=== PATIENT | female | born 1975 | race Caucasian/White ===

== ENCOUNTER 2021-12-09 22:17 | Inpatient (IN) ==
[2021-12-10] MEDS ORDERED: Naloxone 0.4 MG/ML INJ IVP PRN (01:19)
[2021-12-10] MEDS ORDERED: Ondansetron 4 MG/2 ML VIAL IVP PRN ×2 (01:19→09:43)
[2021-12-10] MEDS ORDERED: *HR* HYDROmorphone 2 MG/ML SYRINGE IVP PRN (02:02)
[2021-12-10] MEDS ORDERED: Ipratropium/Albuterol Neb 3 ML IH PRN (02:13)
[2021-12-10] MEDS: 0.9 % Sodium Chloride 1,000 ML IVC SCH ×3 (02:29→17:59)
[2021-12-10 03:14] LABS: Basophils % 0.3 %; Eosinophils # 0.1 K/mcL (0.0-0.6); Eosinophils % 1.1 %; Hematocrit 43.3 % (35.3-44.9); Hemoglobin 14.3 g/dL (11.5-15.4); Immature Granulocytes % 0.3 % (0-4); Lymphocytes # 0.8 K/mcL (0.6-4.6); Lymphocytes % 9.1 %; Mean Corpuscular Hemoglobin 28.5 pg (28.0-33.3); Mean Corpuscular Volume 86.4 fL (83.0-100.0); Mean Platelet Volume 9.3 fL (9.4-12.4); Monocytes # 0.5 K/mcL (0.0-1.3); Neutrophils # 7.2 K/mcL (1.6-8.9); Platelet Count 264 K/mcL (140-400); Red Blood Count 5.01 M/mcL (3.82-4.97); Red Cell Distribution Width 13.3 % (11.5-14.5); Segmented Neutrophils % 83.2 %; White Blood Count 8.7 K/mcL (4.3-11.1)
[2021-12-10 03:19] LABS: Estimated Average Glucose 126 mg/dl
[2021-12-10 03:23] LABS: Prothrombin Time 11.6 Seconds (9.4-12.1)
[2021-12-10 03:30] LABS: Amylase 18 Units/L (29-103); Lipase 10 Units/L (11-82)
[2021-12-10 03:50] LABS: Alanine Aminotransferase 631 Units/L (7-52); Albumin 3.9 g/dL (3.5-5.7); Albumin/Globulin Ratio 1.5 (1.1-2.2); Alkaline Phosphatase 153 Units/L (34-104); Aspartate Amino Transferase 375 Units/L (13-39); BUN/Creatinine Ratio 12 (6-26); Bilirubin,Direct 2.7 mg/dL (0.0-0.2); Bilirubin,Indirect 1.1 mg/dL (0.0-1.0); Bilirubin,Total 3.8 mg/dL (0.3-1.0); Blood Urea Nitrogen 8 mg/dL (6-20); Calcium 8.9 mg/dL (8.6-10.3); Carbon Dioxide 27 mEq/L (23-29); Chloride 102 mEq/L (98-107); Chol/HDL Ratio 3.5 (0-4.9); Cholesterol 199 mg/dL (< 200); Globulin 2.6 g/dL (2.4-3.5); Glucose 135 mg/dL (70-105); HDL Cholesterol 57 mg/dL (40-59); LDL Cholesterol,Calculated 105 mg/dL (< 100); Magnesium 1.8 mg/dL (1.6-2.6); Osmolality,Calculated 286 (280-300); Phosphorous 2.8 mg/dL (2.7-4.5); Potassium 3.3 mEq/L (3.5-5.1); Sodium 138 mEq/L (136-145); Thyroid Stimulating Hormone 2.969 mcIU/mL (0.340-5.600); Total Protein 6.5 g/dL (6.4-8.9); Triglycerides 187 mg/dL (< 150); eGFR For African Americans > 60 (> 60); eGFR For Non-African Americans > 60 (> 60)
[2021-12-10 04:01] LABS: Hepatitis B Surface Antigen Nonreactive (Nonreactive)
[2021-12-10 04:29] LABS: Hepatitis C Virus Antibody Nonreactive (Nonreactive)
[2021-12-10 04:30] LABS: Hepatitis B Core IgM Nonreactive (Nonreactive)
[2021-12-10 04:31] LABS: Hepatitis A Antibody IgM Nonreactive (Nonreactive)
[2021-12-10] MEDS ORDERED: Acetaminophen 325 MG TABLET PO ONE (07:31)
[2021-12-10] MEDS: Piperacillin/Tazobactam 3.375 GM in 0.9 % Sodium Chloride Mini Bag 100 ML IVPB SCH ×2 (07:39→17:34)
[2021-12-10] MEDS ORDERED: *HR* Vasopressin 20 UNIT/ML VIAL ONE (13:34)
[2021-12-10] MEDS ORDERED: Lidocaine HCL 4 ML Topical Solution (Laryng-O-Jet Kit Sterile Pak) TP ONE (13:38)
[2021-12-10] MEDS ORDERED: *HR* Rocuronium Bromide 50 MG/5 ML VIAL ONE (13:40)
[2021-12-10] MEDS ORDERED: *HR* Propofol 200 MG/20 ML VIAL IVP ONE (13:40)
[2021-12-10] MEDS ORDERED: Ondansetron 4 MG/2 ML VIAL ONE (13:40)
[2021-12-10] MEDS ORDERED: Lidocaine -MPF 2% 5 ML VIAL ONE (13:40)
[2021-12-10] MEDS ORDERED: *HR* FentaNYL (PF) 100 MCG/2 ML VIAL ONE (13:41)
[2021-12-10] MEDS ORDERED: Promethazine 6.25 MG in Water for inj. (sterile) 20 ML IVPB PRN (14:55)
[2021-12-10] MEDS ORDERED: *HR* OxyCODONE Immed Rel 5 MG TABLET PO PRN (14:55)
[2021-12-10] MEDS ORDERED: *HR* HYDROmorphone PF 0.5 MG/0.5 ML SYRINGE IVP PRN (14:55)
[2021-12-11] MEDS: 0.9 % Sodium Chloride 1,000 ML IVC SCH ×2 (00:46→13:15)
[2021-12-11] MEDS: Piperacillin/Tazobactam 3.375 GM in 0.9 % Sodium Chloride Mini Bag 100 ML IVPB SCH ×4 (00:46→23:57)
[2021-12-11] MEDS ORDERED: *HR* Labetalol 20 MG/4 ML SYRINGE IVP ONE ×2 (01:03→11:35)
[2021-12-11] MEDS ORDERED: Ibuprofen 600 MG TABLET PO ONE (01:04)
[2021-12-11 03:57] LABS: Basophils % 0.1 %; Eosinophils % 0.1 %; Hemoglobin 13.8 g/dL (11.5-15.4); Immature Granulocytes % 0.7 % (0-4); Lymphocytes % 7.1 %; Mean Corpuscular HGB Conc 32.9 g/dL (31.6-35.5); Mean Corpuscular Hemoglobin 28.3 pg (28.0-33.3); Mean Corpuscular Volume 86.1 fL (83.0-100.0); Mean Platelet Volume 9.6 fL (9.4-12.4); Monocytes # 0.3 K/mcL (0.0-1.3); Monocytes % 2.5 %; Platelet Count 312 K/mcL (140-400); Red Blood Count 4.88 M/mcL (3.82-4.97); Red Cell Distribution Width 13.5 % (11.5-14.5); Segmented Neutrophils % 89.5 %
[2021-12-11 04:14] LABS: White Blood Count 13.4 K/mcL (4.3-11.1)
[2021-12-11 04:17] LABS: Alanine Aminotransferase 475 Units/L (7-52); Albumin 3.7 g/dL (3.5-5.7); Albumin/Globulin Ratio 1.4 (1.1-2.2); Alkaline Phosphatase 133 Units/L (34-104); Aspartate Amino Transferase 171 Units/L (13-39); BUN/Creatinine Ratio 16 (6-26); Bilirubin,Total 1.3 mg/dL (0.3-1.0); Blood Urea Nitrogen 7 mg/dL (6-20); Calcium 8.3 mg/dL (8.6-10.3); Carbon Dioxide 24 mEq/L (23-29); Chloride 101 mEq/L (98-107); Globulin 2.7 g/dL (2.4-3.5); Glucose 97 mg/dL (70-105); Magnesium 1.6 mg/dL (1.6-2.6); Osmolality,Calculated 278 (280-300); Phosphorous 2.4 mg/dL (2.7-4.5); Potassium 3.1 mEq/L (3.5-5.1); Sodium 135 mEq/L (136-145); Total Protein 6.4 g/dL (6.4-8.9); eGFR For African Americans > 60 (> 60); eGFR For Non-African Americans > 60 (> 60)
[2021-12-11] MEDS ORDERED: Iopamidol - 300 50 ML VIAL ONE (08:55)
[2021-12-11] MEDS ORDERED: *HR* Propofol 200 MG/20 ML VIAL IVP ONE (09:05)
[2021-12-11] MEDS ORDERED: *HR* FentaNYL (PF) 100 MCG/2 ML VIAL ONE ×2 (09:13→10:06)
[2021-12-11] MEDS ORDERED: *HR* Midazolam HCl 2 MG/2 ML VIAL ONE (09:13)
[2021-12-11] MEDS ORDERED: Famotidine 20 MG/2 ML VIAL ONE (09:47)
[2021-12-11] MEDS ORDERED: Lidocaine -MPF 2% 5 ML VIAL ONE (10:04)
[2021-12-11] MEDS ORDERED: Sugammadex Sodium 200 MG/2 ML VIAL IV ONE (10:15)
[2021-12-11] MEDS ORDERED: *HR* HYDROMORPHONE 2 MG/ML VIAL ONE (10:17)
[2021-12-11] MEDS ORDERED: Acetaminophen IV 1,000 MG/100 ML BAG IVPB ONE ×2 (10:47→10:48)
[2021-12-11] MEDS ORDERED: Ondansetron 4 MG/2 ML VIAL IVP PRN ×2 (11:20→13:11)
[2021-12-11] MEDS ORDERED: Ketorolac 30 MG/ML VIAL IVP PRN (11:20)
[2021-12-11] MEDS ORDERED: *HR* HYDROmorphone 2 MG TABLET PO PRN (11:20)
[2021-12-11] MEDS ORDERED: Promethazine 6.25 MG in Water for inj. (sterile) 20 ML IVPB PRN (11:20)
[2021-12-11] MEDS ORDERED: *HR* OxyCODONE Immed Rel 5 MG TABLET PO PRN (11:20)
[2021-12-11] MEDS ORDERED: Famotidine 20 MG/2 ML VIAL IVP ONE (11:20)
[2021-12-11] MEDS ORDERED: cloNIDine HCL 0.1 MG TABLET PO PRN (11:20)
[2021-12-11] MEDS: *HR* Labetalol 20 MG/4 ML SYRINGE IVP PRN ×2 (11:37→11:49)
[2021-12-11] MEDS: *HR* HYDROmorphone (PF) 1 MG/ML SYRINGE IVP PRN ×2 (12:17→12:38)
[2021-12-11] MEDS ORDERED: Naloxone 0.4 MG/ML INJ IVP PRN (13:11)
[2021-12-11] MEDS ORDERED: Ipratropium/Albuterol Neb 3 ML IH PRN (13:11)
[2021-12-11] MEDS ORDERED: *HR* HYDROmorphone 2 MG/ML SYRINGE IVP PRN (13:11)
[2021-12-11] MEDS ORDERED: CloNIDine Patch 0.1 MG PATCH (WEEKLY) TD ONE (13:15)
[2021-12-11] MEDS: Ketorolac 30 MG/ML VIAL IVP SCH ×3 (13:20→23:57)
[2021-12-11] MEDS: *HR* OxyCODONE/APAP 5/325 TABLET PO PRN ×2 (17:16→21:23)
[2021-12-12 03:23] LABS: Basophils % 0.1 %; Eosinophils % 0.2 %; Hematocrit 34.2 % (35.3-44.9); Immature Granulocytes % 0.4 % (0-4); Lymphocytes # 1.7 K/mcL (0.6-4.6); Lymphocytes % 13.8 %; Mean Corpuscular HGB Conc 32.5 g/dL (31.6-35.5); Mean Corpuscular Hemoglobin 28.8 pg (28.0-33.3); Mean Corpuscular Volume 88.8 fL (83.0-100.0); Mean Platelet Volume 9.7 fL (9.4-12.4); Monocytes # 0.8 K/mcL (0.0-1.3); Monocytes % 6.4 %; Neutrophils # 9.8 K/mcL (1.6-8.9); Platelet Count 242 K/mcL (140-400); Red Blood Count 3.85 M/mcL (3.82-4.97); Red Cell Distribution Width 14.1 % (11.5-14.5); Segmented Neutrophils % 79.1 %; White Blood Count 12.4 K/mcL (4.3-11.1)
[2021-12-12 03:39] LABS: Hemoglobin 11.1 g/dL (11.5-15.4)
[2021-12-12 03:47] LABS: Alanine Aminotransferase 369 Units/L (7-52); Albumin 3.1 g/dL (3.5-5.7); Albumin/Globulin Ratio 1.4 (1.1-2.2); Alkaline Phosphatase 94 Units/L (34-104); Aspartate Amino Transferase 129 Units/L (13-39); BUN/Creatinine Ratio 20 (6-26); Bilirubin,Total 0.8 mg/dL (0.3-1.0); Blood Urea Nitrogen 12 mg/dL (6-20); Calcium 7.9 mg/dL (8.6-10.3); Carbon Dioxide 26 mEq/L (23-29); Chloride 106 mEq/L (98-107); Globulin 2.2 g/dL (2.4-3.5); Glucose 94 mg/dL (70-105); Osmolality,Calculated 286 (280-300); Potassium 3.6 mEq/L (3.5-5.1); Sodium 138 mEq/L (136-145); Total Protein 5.3 g/dL (6.4-8.9); eGFR For African Americans > 60 (> 60); eGFR For Non-African Americans > 60 (> 60)
[2021-12-12] MEDS: Ketorolac 30 MG/ML VIAL IVP SCH (05:43)
[2021-12-12 06:37] VITALS: BP 128/84; PULSE 80; TEMP 98.1; O2SAT 94
[2021-12-12] MEDS: Piperacillin/Tazobactam 3.375 GM in 0.9 % Sodium Chloride Mini Bag 100 ML IVPB SCH (08:38)
[2021-12-12] MEDS: *HR* OxyCODONE/APAP 5/325 TABLET PO PRN (09:46)
== END 2021-12-12 13:15 | disposition home or self-care (01) | DRG 419 ==
LOC: 3BNU → SUATTDRO 12-10 00:40
PROVIDERS: ADMIT Internal Medicine; ATTEND Internal Medicine